=== PATIENT | female | born 2000 | race African-American/Black ===

== ENCOUNTER 2019-01-22 06:26 | Emergency (ER) | payer OTHER ==
[~2019-01-22] VITALS: Ht 165.1 cm; Wt 69.3 kg
[2019-01-22 06:27] VITALS: BP 136/61; PULSE 72; RESP 18; Ht 165.1 cm; Wt 69.3 kg
[2019-01-22] MEDS ORDERED: CEPH-443 PO (07:09)
[2019-01-22] MEDS ORDERED: NYST15CR28 TOP (07:09)
--- NOTE | 2019-01-24 04:44 | ERD ---
ER Documentation Chief Complaint Chief Complaint pain with urination x 4 days HPI 18-year-old female with no significant medical history presents with complaints of burning on urination for 4 days. She also reports itching in the vaginal region. She took no medication for relief of symptoms. Symptoms are currently mild and intermittent. She denies any fevers, chills, abdominal pain, or other symptoms currently. ROS All systems reviewed and are negative except as per history of present illness. Medications Home Meds Active Scripts Cephalexin* (Keflex*) 500 Mg Capsule, 500 MG PO QID for 7 Days, CAP Prov:YUNG MOODY PA-C 01/22/19 Nystatin* (Nystatin*) 15 Gm Cr, 1 APPLIC TOP TID, #1 TUB Prov:YUNG MOODY PA-C 01/22/19 PMhx/Soc Medical and Surgical Hx: pt denies Medical Hx, pt denies Surgical Hx Hx Alcohol Use: No Hx Substance Use: No Hx Tobacco Use: No Smoking Status: Never smoker FmHx Family History: No diabetes Physical Exam Vitals Vital Signs Date Temp Pulse Resp B/P (MAP) Pulse Ox O2 O2 Flow FiO2 Time Delivery Rate 01/22/19 98.3 72 18 136/61 99 06:27 (86) Physical Exam Const: No acute distress Head: Atraumatic Eyes: Normal Conjunctiva ENT: Normal External Ears, Nose and Mouth. Neck: Full range of motion. No meningismus. Resp: Clear to auscultation bilaterally Cardio: Regular rate and rhythm, no murmurs Abd: Soft, non tender, non distended. Normal bowel sounds. No rebound tenderness or guarding. No McBurney tenderness. Skin: No petechiae or rashes Back: No midline or flank tenderness Ext: No cyanosis, or edema Neur: Awake and alert Psych: Normal Mood and Affect Results 24 hrs Laboratory Tests Test 01/22/19 06:51 Bedside Urine pH (LAB) 5.5 Bedside Urine Protein (LAB) Negative Bedside Urine Glucose (UA) Negative Bedside Urine Ketones (LAB) Trace Bedside Urine Blood Negative Bedside Urine Nitrite (LAB) Negative Bedside Urine Leukocyte Esterase (L 1+ POC Beta HCG, Qualitative NEGATIVE Procedures/MDM 18-year-old female presents with signs and symptoms most consistent with uncomplicated urinary tract infection and vaginitis, likely fungal etiology. No evidence of acute surgical abdomen, PID, sepsis, or other emergencies. Patient will be treated as an outpatient with a prescription for nystatin and Keflex. Patient in agreement with the diagnosis and plan and need for follow-up. She was advised to return to the department immediately for any new or worsening or concerning symptoms. Patient understands and agrees with information provided. Departure Diagnosis: Primary Impression: UTI (urinary tract infection) Additional Impression: Vaginitis Condition: Fair Patient Instructions: Understanding Urinary Tract Infections (UTIs) Referrals: [facility] YOU HAVE RECEIVED A MEDICAL SCREENING EXAM AND THE RESULTS INDICATE THAT YOU DO NOT HAVE A CONDITION THAT REQUIRES URGENT TREATMENT IN THE EMERGENCY DEPARTMENT. FURTHER EVALUATION AND TREATMENT OF YOUR CONDITION CAN WAIT UNTIL YOU ARE SEEN IN YOUR DOCTORS OFFICE WITHIN THE NEXT 1-2 DAYS. IT IS YOUR RESPONSIBILITY TO MAKE AN APPOINTMENT FOR FOLOW-UP CARE. IF YOU HAVE A PRIMARY DOCTOR --you should call your primary doctor and schedule an appointment IF YOU DO NOT HAVE A PRIMARY DOCTOR YOU CAN CALL OUR PHYSICIAN REFERRAL HOTLINE AT IF YOU CAN NOT AFFORD TO SEE A PHYSICIAN YOU CAN CHOSE FROM THE FOLLOWING FORMERLY [facility], [facility] [address] [facility] [facility] [address] [facility] [facility] [address] [facility]. [facility] [address] [facility]. [facility] [address] [facility]. [facility]. [address] Additional Instructions: Call your primary care doctor TOMORROW for an appointment during the next 1-2 days.See the doctor sooner or return here if your condition worsens before your appointment time. YUNG MOODY PA-C Jan 24, 2019 04:44
== END 2019-01-22 07:38 | disposition home or self-care (01) ==
LOC: FTE 06:26
DX: N39.0 Urinary tract infection, site not specified (principal); N76.0 Acute vaginitis
CPT/HCPCS: 81003; 81025; Z7502; 99283